=== PATIENT | female | born 1980 | race Caucasian/White ===

== ENCOUNTER → 2016-07-11 | Outpatient (CLI) | payer BC | END | disposition home or self-care (01) | LOC: C.PAPS 09:51 | PROVIDERS: ATTEND Family Medicine | DX: Z01.419 Encounter for gynecological examination (general) (routine) without abnormal findings (principal); Z87.42 Personal history of other diseases of the female genital tract ==

== ENCOUNTER → 2016-07-20 | Outpatient (CLI) | payer BC, OTHER ==
--- NOTE | 2016-07-20 17:05 | MAMMOGRAPHY REPORT ---
BILATERAL FIRST EVER DIGITAL SCREENING MAMMOGRAM TOMOSYNTHESIS WITH CAD: 07/20/2016 CLINICAL HISTORY: Baseline examination. TECHNIQUE: Breast tomosynthesis in addition to standard 2D mammography was performed. Current study was also evaluated with a Computer Aided Detection (CAD) system. COMPARISON: No prior exams were available for comparison. BREAST COMPOSITION: There are scattered areas of fibroglandular density in both breasts. FINDINGS: There is a small cluster of calcifications in the right upper outer quadrant, for which s pot magnification views are recommended for further evaluation. There is an oval mildly lobulated 1 4 mm mass with predominantly obscured margins seen within the right lateral breast on the cc view, t hought to project superiorly on the MLO view, for which spot compression tomosynthesis views and pos sible breast ultrasound are recommended for further evaluation. The remainder of both breasts are negative, without suspicious masses, calcifications, or areas of a rchitectural distortion noted. Multiple small round/oval circumscribed benign-appearing masses are s een within bilateral upper outer quadrants, consistent with benign intramammary lymph nodes. IMPRESSION: ACR BI-RADS CATEGORY 0: INCOMPLETE EVALUATION: NEED ADDITIONAL IMAGING EVALUATION Right upper outer quadrant calcifications and right upper outer quadrant breast mass, for which jeanine tional imaging evaluation is recommended. The patient will be called to schedule an appointment. Approximately 10% of breast cancers are not detected with mammography. A negative mammographic repor t should not delay biopsy if a clinically suggestive mass is present. Rosa French M.D. ah/:07/20/2016 16:51:20 Insemination Worker: Joceline CARBONE)(Hardy), [facility] letter sent: Addl Imaging 0 BI-RADS Code: ACR BI-RADS Category 0: Incomplete Evaluation: Need Additional Imaging Evaluation
== END | disposition home or self-care (01) ==
LOC: C.MAMM 16:25
PROVIDERS: ATTEND Obstetrics & Gynecology
DX: Z12.31 Encounter for screening mammogram for malignant neoplasm of breast (principal); R92.1 Mammographic calcification found on diagnostic imaging of breast; N63 Unspecified lump in breast

== ENCOUNTER → 2016-08-05 | Outpatient (CLI) | payer BC, OTHER ==
--- NOTE | 2016-08-05 14:08 | MAMMOGRAPHY REPORT ---
UNILATERAL RIGHT DIGITAL DIAGNOSTIC MAMMOGRAM TOMOSYNTHESIS AND TARGETED RIGHT ULTRASOUND: 08/05/2016 CLINICAL HISTORY: Callback from screening mammogram for right breast calcifications and right breast asymmetry. TECHNIQUE: Breast tomosynthesis in addition to standard 2D mammography was performed. Right CC and MLO spot compression tomosynthesis views including C views and spot magnification right cc and ML v iews were obtained. COMPARISON: Comparison is made to exam dated: 07/20/2016 mammogram - [facility]. BREAST COMPOSITION: There are scattered areas of fibroglandular density in the right breast. FINDINGS: The previously described oval 14 mm mass seen within the right lateral breast on the cc v iew is less prominent on the spot compression views although there may still be an obscured mass on the tomosynthesis images. The mass is thought to project superiorly based on the MLO view. Spot ma gnification views of the right breast demonstrate a small 5 mm cluster of calcifications in the righ t upper outer quadrant. The calcifications are in a linear distribution, and are therefore indeterm inate and stereotactic biopsy is recommended for further evaluation. Targeted ultrasound was performed of the right upper outer quadrant in the region of the mammographi c asymmetry. A lobulated circumscribed anechoic mass with thin internal septations is seen within t he right breast at 10:00, 4 cm from the nipple, measuring 10 x 7 x 6 mm. This is felt to correlate with the mammographic asymmetry and is consistent with a benign cyst. Multiple other smaller cysts were seen in the adjacent breast, including a 5 x 5 mm cyst in the right breast at 10:00, 4 cm from the nipple. Another anechoic benign cyst measuring 4 x 4 mm is seen in the right breast at 10:00, 3 cm in the nipple. Another anechoic round circumscribed benign cyst measuring 5 x 4 x 4 mm is seen within the right breast at 9:00, 4 cm from the nipple. No suspicious solid masses were evident. IMPRESSION: ACR BI-RADS CATEGORY 4: SUSPICIOUS, TARGETED ULTRASOUND ACR BI-RADS CATEGORY 4: SUSPICI OUS 1. Small 5 mm cluster of calcifications in the right upper outer quadrant, which are linearly distr ibuted. The calcifications are indeterminate and stereotactic biopsy is recommended for further ciro luation. 2. Benign 10 mm cyst in the right breast at 10:00 on ultrasound, which correlates with the mammogra phic mass. Other adjacent benign cysts were seen on ultrasound. A phone call was made to the physician's office to confirm faxed results were received. The patient has been verbally notified of the results. She tentatively scheduled the biopsy before leaving the department. Approximately 10% of breast cancers are not detected with mammography. A negative mammographic repor t should not delay biopsy if a clinically suggestive mass is present. Rosa French M.D. ah/:08/05/2016 11:40:00 Computer Systems Integrator: Mae SAMSON(R)(M), [facility] letter sent: Abnormal 4/5 BI-RADS Code: ACR BI-RADS Category 4: Suspicious Ultrasound BI-RADS: ACR BI-RADS Category 4: Suspic ious
== END | disposition home or self-care (01) ==
LOC: C.MAMM 10:46
PROVIDERS: ATTEND Obstetrics & Gynecology
DX: R92.1 Mammographic calcification found on diagnostic imaging of breast (principal); N64.89 Other specified disorders of breast; N60.01 Solitary cyst of right breast

== ENCOUNTER → 2016-08-12 | Outpatient (CLI) | payer BC, OTHER ==
--- NOTE | 2016-08-12 13:16 | Discharge Instructions ---
Discharge Instructions Procedure Procedure Date: Aug 12, 2016. Reason for visit: Right Calcifications. Discharge Discharge Date: Aug 12, 2016. Discharge Diagnosis: status post breast biopsy Instructions Activity Recommendations: Additional Limitations (see below) Return to School/Work: no limitations Recommended Home Diet: No Limitations Provider Instructions: ACTIVITY RECOMMENDATIONS: * No lifting, pushing, pulling or exercising the affected side for three days. RETURN TO SCHOOL/WORK: * You may return to work/school after the procedure, but do not perform any strenuous activities for 24 to 48 hours. MEDICATIONS: * Tylenol (two 325 mg) every four to six hours if needed for mild pain (if not allergic to Tylenol). DIET: * Resume previous diet. SPECIAL CARE INSTRUCTIONS: * Keep biopsy site dry for 24 hours. May shower after 24 hours, but do not soak (bathe) incision. * May remove Tegaderm (plastic patch) tomorrow AFTER showering. * Leave the steri-strips on for one week. Allow the steri-strips to fall off by themselves. If not off after one week, you may remove them. You may place a Bandaid crosswise over the strips, if desired. * Apply ice 10 minutes on and 10 minutes off as needed. * Wear a bra at bedtime to sleep more comfortably for 2-3 days. * Your referring physician should have the results after approximately 5 to 7 business days. * Call for unusual bleeding, fever, drainage, etc or if you have any questions call during normal business hours or after hours call Dr French, . FOLLOW UP VISIT: Follow-up with Referring Physician as scheduled. [facility] Recommendations: Call your doctor if: * Temperature above 101 degrees * Pain not relieved by pain medicine ordered * There is increased drainage or redness from any incision * You have any unanswered questions or concerns. Your Doctors Instructions noted above were prepared by provider Rosa French. Patient Signature Section: Patient Instructions Signature Page [place] Patient (or Guardian) Signature/Date: I have read and understand the instructions given to me by my caregivers. Caregiver/RN/Doctor Signature/Date: The above-named patient and/or guardian has received patient instructions on this date. + Original Patient Signature Page (only) stays with chart. Please make copy for patient.
--- NOTE | 2016-08-12 13:57 | MAMMOGRAPHY REPORT ---
STEREOTACTIC GUIDED BIOPSY RIGHT BREAST: 08/12/2016 CLINICAL HISTORY: Indeterminate calcifications in the right upper outer quadrant. PATIENT CONSENT: The procedure, risks, benefits, and alternatives of stereotactic biopsy with clip p lacement were discussed with the patient, and verbal and written consent was obtained. A timeout wa s performed immediately prior to the procedure. PROCEDURE DESCRIPTION: With stereotactic guidance, aseptic technique, and lidocaine as a local anest hetic (1% lidocaine to anesthetize the skin and 1% lidocaine with epinephrine to anesthetize the sandy per tissues), the area of concern was sampled multiple times with a 9-gauge vacuum-assisted biopsy n eedle (Visual Pro 360 Eviva). The path of approach was craniocaudal. The specimen radiograph demonstrates c alcifications to be present in the samples. The samples containing calcifications (labeled A) were from the samples without calcifications (labeled B). A metallic marker clip was placed at the biopsy site. This was confirmed on postprocedure mammograms. Direct pressure was applied at t he biopsy site and hemostasis was readily achieved. The patient tolerated the procedure without com plication. She was given wound care instructions. COMPARISON: Comparison is made to exams dated: 08/05/2016 mammogram and 07/20/2016 mammogram - [facility]. IMPRESSION: STEREOTACTIC GUIDED BIOPSY Stereotactic biopsy of indeterminate calcifications in the right upper outer quadrant, with clip danette cement. The patient will receive pathology results from her referring provider. Rosa French M.D. /:08/12/2016 13:17:56 Attending Technologist: Nai Miner RT(R)(M), [facility] Enterer: Joceline Connolly RT(R)(M), [facility]
--- NOTE | 2016-08-12 13:58 | MAMMOGRAPHY REPORT ---
UNILATERAL RIGHT DIGITAL DIAGNOSTIC MAMMOGRAM: 08/12/2016 CLINICAL HISTORY: Status post stereotactic biopsy of right upper outer quadrant calcifications. TECHNIQUE: Postprocedural right CC and ML views were obtained. COMPARISON: Comparison is made to exams dated: 08/05/2016 mammogram, 08/05/2016 ultrasound, and 017 mammogram - [facility]. BREAST COMPOSITION: There are scattered areas of fibroglandular density in the right breast. FINDINGS: A new biopsy marker clip is seen at the site of the biopsied calcifications in the right upper outer quadrant. No significant postbiopsy hematoma is seen. IMPRESSION: POST PROCEDURE IMAGING FOR MARKER PLACEMENT New biopsy marker clip status post stereotactic biopsy of right upper outer quadrant calcifications. Pathology results are pending. Approximately 10% of breast cancers are not detected with mammography. A negative mammographic repor t should not delay biopsy if a clinically suggestive mass is present. Rosa French M.D. ah/:08/12/2016 13:30:33 Attending Technologist: Nai Miner RT(R)(M), [facility] Lamination Machine Operator: Joceline Connolly RT(R)(M), [facility] BI-RADS Code: Post Procedure Imaging For Marker Placement
== END | disposition home or self-care (01) ==
LOC: C.MAMM 12:29
PROVIDERS: ATTEND Obstetrics & Gynecology
DX: R92.1 Mammographic calcification found on diagnostic imaging of breast (principal)

== ENCOUNTER → 2016-08-25 | Outpatient (CLI) | payer BC, OTHER ==
[2016-08-25 17:06] LABS: THYROID STIMULATING HORMONE 1.17 uIu/ml (0.300-4.500)
== END | disposition home or self-care (01) ==
LOC: C.LAB1850 15:57
PROVIDERS: ATTEND Obstetrics & Gynecology
DX: R63.5 Abnormal weight gain (principal)

== ENCOUNTER 2017-06-12 19:12 | Emergency (ER) | payer BC, OTHER ==
[~2017-06-12] VITALS: Ht 170.2 cm; Wt 99.4 kg
[2017-06-12 19:14] VITALS: TEMP 37; O2SAT 97; Ht 170.2 cm; Wt 99.4 kg
--- NOTE | 2017-06-12 19:46 | DIAGNOSTIC IMAGING REPORT ---
L FINGER(S) MIN 2 VIEWS ROUTINE CLINICAL HISTORY: 37 years-old Female presenting with L 3rd digit hyperextension injury. Now pain. TECHNIQUE: Frontal, oblique, and lateral views of the left third finger were obtained. COMPARISON: None. FINDINGS: No acute fracture or malalignment. Mild soft tissue swelling along the third finger may be present along the volar aspect. No degenerative change. IMPRESSION: Soft tissue swelling suggested along the volar aspect of the third finger without evidence of acute osseous injury. Electronically signed by: Jeffrey Sun M.D. 06/12/2017 7:45 PM Dictated Date/Time: 06/12/2017 7:43 PM
--- NOTE | 2017-06-12 20:05 | EMERGENCY ROOM VISIT NOTE ---
History First contact with patient: 19:18 Chief Complaint: FINGER PAIN Stated Complaint: BROKEN LEFT HAND, 3RD DIGIT History of Present Illness The patient is a 37 year old female who presents to the Emergency Room via private vehicle with complaints of "broken left hand, third digit". The patient states that yesterday her child actually kicked her in the left third digit. She states that she heard a crack. She states it was a hyperextension injury. She notes now some bruising and swelling with some numbness. She states she only has pain when she moves her finger. She rates her overall pain currently as a 0/10. She is right-hand dominant. Review of Systems A complete 6-point Review of Systems was discussed with the patient, with pertinent positives and negatives listed in the History of Present Illness. All remaining Review of Systems questions can be considered negative unless otherwise specified. Past Medical/Surgical History Non contributory Family History Non contributory Social History Smoking Status: Former Smoker Patient lives locally. Current/Historical Medications No Active Prescriptions or Reported Meds Physical Exam Vital Signs Date Time Temp Pulse Resp B/P (MAP) Pulse Ox O2 Delivery O2 Flow Rate FiO2 06/12/17 20:14 74 16 125/71 06/12/17 19:14 37.0 92 16 191/113 97 Room Air Physical Exam VITAL SIGNS - Vital signs and nursing notes were reviewed. Stable GENERAL - 37-year-old female appearing her stated age who is in no acute distress. Communicates well with provider and answers questions appropriately. SKIN - Without rashes. Skin overlying the left third digit is intact but edematous, with some ecchymosis. Good capillary refill. EXTREMITIES - No clubbing or peripheral cyanosis. No pretibial edema present. Full range of motion noted to the patient's left third digit. No extensor or flexor injury noted. No tenderness appreciated. +5/5 strength noted in UE/LE bilaterally. She is neurovascularly intact in this region with excellent capillary refill. Medical Decision & Procedures ER Provider Diagnostic Interpretation: L FINGER(S) MIN 2 VIEWS ROUTINE CLINICAL HISTORY: 37 years-old Female presenting with L 3rd digit hyperextension injury. Now pain. TECHNIQUE: Frontal, oblique, and lateral views of the left third finger were obtained. COMPARISON: None. FINDINGS: No acute fracture or malalignment. Mild soft tissue swelling along the third finger may be present along the volar aspect. No degenerative change. IMPRESSION: Soft tissue swelling suggested along the volar aspect of the third finger without evidence of acute osseous injury. Electronically signed by: Jeffrey Sun M.D. 06/12/2017 7:45 PM Dictated Date/Time: 06/12/2017 7:43 PM Medical Decision Patient was seen and evaluated as above. After obtaining a thorough history and physical examination x-rays were obtained of the finger. She denied chance of . X-ray reveals no fracture. I suspect she likely has a soft tissue contusion. She was placed in a splint but was educated upon other elements that are possible but not as likely to include but are not limited to ligamentous, tendon or occult fracture. She is to follow-up with orthopedics if this persists. She is to call him to arrange his follow-up. Number was provided. Splint is applied. She was educated upon management, educated upon worrisome symptoms which to return, had questions and provided discharge, and was discharged home in good condition. In evaluation treatment this patient the following differential diagnoses were entertained: Finger fracture, dislocation, Flexeril injury, extensor injury, among others. Impression Primary Impression: Finger pain Departure Information Dispostion Home / Self-Care Condition GOOD Prescriptions No Active Prescriptions or Reported Meds Referrals Terrence Kincaid M.D. (PCP) Donaldo Cardenas M.D. Patient Instructions [facility] Additional Instructions You have been treated in the Emergency Department for finger Pain. For pain control, you can use the following [id number] medicines (if >12 yo): - Regular strength (325mg/tab) Tylenol (acetaminophen) 2 tabs every 4-6 hours as needed. Do not exceed 12 tablets in a 24 hour period. Avoid taking more than 3 grams (3000 mg) of Tylenol per day. This includes any other sources of acetaminophen you may take on a regular basis. - Regular strength (200 mg/tab) Advil (ibuprofen) 1-2 tabs every 4-6 hours as needed. Do not exceed a dose of 3200 mg per day. If this is a recent injury (<24 hrs), ice can be applied to the area of pain for the first 3 days to help decrease pain and inflammation. You have been provided the number for an Orthopaedic Surgeon. You should call this number as soon as possible to establish a follow-up visit from today's Emergency Department visit. Keep the brace/splint in place until evaluated by Orthopedics for pain free. Return to the Emergency Department if your current symptoms worsen despite treatment course outlined above, or if you develop any of the following symptoms : intractable pain despite aforementioned treatment course or new onset of numbness or tingling of the fingers.
[2017-06-12 20:14] VITALS: BP 125/71; PULSE 74
== END 2017-06-12 20:14 | disposition home or self-care (01) ==
LOC: C.EDB 19:13 → C.EDD 20:14
DX: M25.542 Pain in joints of left hand (principal); Z87.891 Personal history of nicotine dependence

== ENCOUNTER → 2017-07-31 | Outpatient (CLI) | payer BC, OTHER | END | disposition home or self-care (01) | LOC: C.PAPS 14:56 | PROVIDERS: ATTEND Obstetrics & Gynecology | DX: Z01.419 Encounter for gynecological examination (general) (routine) without abnormal findings (principal) ==